=== PATIENT | male | born 1965 | race Caucasian/White ===

== ENCOUNTER 2017-03-11 09:48 | Outpatient (CLI) | payer BC, MEDICARE ==
[2017-03-11 11:52] LABS: #Basophils 0.1 thou/uL (0.0-0.2); #Eosinphils 0.2 thou/uL (0.0-0.7); #Monocytes 0.3 thou/uL (0.11-0.59); #Neutrophils 2.3 thou/uL (1.40-6.50); %Basophils 1.3 % (0.0-1.0); %Eosinophils 5.7 % (0.0-10.0); %Lymphocytes 24.6 % (21.0-51.0); %Monocytes 8.7 % (0.0-10.0); %Neutrophils 59.6 % (42.0-75.0); Hemoglobin 16.7 g/dL (14.0-18.0); Mean Corpuscular HGB CONC 32.5 g/dL (32.0-36.0); Mean Corpuscular Hemoglobin 29.4 pg (27.0-31.0); Mean Corpuscular Volume 90.4 fl (80.0-94.0); Mean Platelet Volume 7.5 fL (7.4-10.4); Platelet Count 188 thou/uL (130-400); RBC Distribution Width 11.6 % (11.5-14.5); Red Blood Cell (RBC) Count 5.68 mill/uL (4.70-6.10); White Blood Cell (WBC) Count 3.9 thou/uL (4.8-10.8)
[2017-03-11 12:28] LABS: ALT (SGPT) 19 U/L (8-55); AST (SGOT) 19 U/L (5-34); Albumin 4.7 g/dL (3.5-5.0); Alkaline Phosphatase 49 U/L (40-150); Anion Gap 15 mmol/L (10-20); BUN (Urea Nitrogen) 15 mg/dL (8.4-25.7); Bilirubin, Total 2.4 mg/dL (0.2-1.2); Calc. Creatinine Clearance 0 mL/min (70-130); Calcium 9.5 mg/dL (7.8-10.44); Carbon Dioxide 26 mmol/L (22-29); Cardiac Risk 3.1 (Less than 4.5); Chloride 103 mmol/L (98-107); Cholesterol 177 mg/dl (< 200 Desired); Estimated GFR-MDRD 81; Globulin 2.9 g/dL (2.4-3.5); Glucose 104 mg/dL (70-105); HDL Cholesterol 58 mg/dL (>60 Neg Risk); LDL Cholesterol, Calculated 107 mg/dL; Protein, Total 7.6 g/dL (6.0-8.3); Sodium 140 mmol/L (136-145); Triglycerides 61 mg/dL (Less than 150)
== END 2017-03-11 09:49 ==
LOC: HPCALD 09:48
PROVIDERS: ATTEND Family Medicine
DX: I10 Essential (primary) hypertension (principal); R53.83 Other fatigue
CPT/HCPCS: 36415; 80053; 80061; 84443; 85025